=== PATIENT | female | born 1990 | race Caucasian/White ===

== ENCOUNTER 2016-09-15 12:56 | Emergency (ER) | payer BC ==
[2016-09-15 13:27] LABS: Hematocrit 39.9 % (37.0-47.0); Hemoglobin 13.3 gm/dL (12.5-16.0); Mean Cell Volume 84.9 fl (78-100); Mean Corpuscular Hemoglobin 28.3 pg (27-31); Mean Corpuscular Hgb Conc 33.3 g/dl (32-36); Mean Platelet Volume 10.8 fl (6.0-9.5); Neutrophil # 3.3 K/mm3 (1.3-6.0); Neutrophil % 49.8 % (42-75.0); Platelet Count 236 K/mm3 (150-450); Red Cell Distribution Width 13.5 % (11.5-14.0); White Blood Count 6.6 K/mm3 (4.0-10.5)
[2016-09-15 13:34] LABS: Urine Bilirubin Negative (NEGATIVE); Urine Blood Negative /ul (NEGATIVE); Urine Ketone Negative (NEGATIVE); Urine Nitrite Negative (NEGATIVE); Urine Protein Negative (NEGATIVE); Urine Urobilinogen Normal (NORMAL); Urine pH 7.5 pH (5.0-7.0)
[2016-09-15 13:42] LABS: Albumin * 3.8 gm/dl (3.4-5.0); Anion Gap 11.8 mmol/L (6.8-13.8); BUN/Creatinine Ratio 22.4 (9.0-21.6); Bilirubin, Total 0.6 mg/dL (0.0-1.1); Ca. Corrected For Albumin 8.4 mg/dL (8.4-10.2); Calcium * 8.6 mg/dL (7.9-10.9); Carbon Dioxide 28.2 mmol/L (24-32.6); Total Protein 7.3 gm/dL (6.2-8.2)
[2016-09-15 13:44] LABS: Urine Appearance Slightly Cloudy; Urine Color Yellow
[2016-09-15 13:45] LABS: Urine Bacteria 1+; Urine RBC 0-5 /hpf (0-5)
[2016-09-15] MEDS ORDERED: KETOROLAC TROMETHAMINE 30 MG/ML VIAL IV ONE (14:25)
--- NOTE | 2016-09-15 14:26 | ERNOTE ---
Abdominal HPI - General Chief Complaint: Abdominal Pain Time Seen by Provider: 09/15/16 14:17 Source: patient, family Exam Limitations: no limitations - Immun/Allergies/Home Medications Allergies/Adverse Reactions: Allergies penicillamine Allergy (Verified 09/15/16 13:10) Home Medications: HOME MEDICATIONS NK [No Home Medication] 09/15/16 [Last Taken Unknown] - History of Present Illness Narrative: Patient started to have right upper quadrant pain shortly after getting up yesterday morning. the pain has been there since waxing and waning, nausea, no vomiting, she never had similar pain, still has her gallbladder Date (Duration): 09/14/16 Time (Timing): 08:00 Quality: moderate Activities at Onset: none Modifying Factors - (Worsens): Absent: breathing, coughing Associated Symptoms: Absent: chest pain, diaphoresis, diarrhea-mucous, fever/ chills, shortness of breath Prior Abdominal Problems: Present: none Prior Treatment: Absent: recently seen, currently on antibiotics Review of Systems - Review of Systems Constitutional: Absent: recent illness, fever ENT: Absent: sore throat Respiratory: Absent: shortness of breath Cardiology: Absent: chest pain Gastrointestinal/Abdominal: Present: See HPI, nausea, abdominal pain. Absent: vomiting, diarrhea Genitourinary: Present: no symptoms reported Skin: Absent: rash Neurological: Absent: headache - Patient's Past Medical History Patient History - Medical: No pertinent hx Patient History - Cardiac/Respiratory: No pertinent hx Patient History - Cancer: No Hx of Cancer Patient History - Surgical Procedures: Appendectomy, T & A, Other - vaginal delivery x3 Patient History - Other: None - Social History Living Situations: home Psych History: No pertinent hx - Immunizations Immunizations Up to Date: Yes Physical Exam - Physical Exam General Appearance: Present: wd/wn, alert, no apparent distress Ears, Nose, Throat: Present: normal pharynx Respiratory: Present: no respiratory distress, normal breath sounds, no accessory muscle use, lungs clear Cardiovascular/Chest: Present: regular rate, rhythm, no murmur Gastrointestinal/Abdominal: Present: normal bowel sounds, nondistended, tenderness - right upper quadrant Extremity Exam: Present: normal inspection, no edema Neurological Exam: Present: alert, oriented, normal mood/affect Skin Exam: Present: normal color, warm/dry ED Progress - Results and Orders Patient's Lab Results:: I have reviewed the patient's lab results. - Vital Signs Patient's Vital Signs:: I have reviewed the patient's vital signs. Vital Signs: Vital Signs 09/15/16 13:05 Temperature 36.5 C Pulse Rate 93 Respiratory 12 Rate Blood Pressure 109/59 O2 Sat by Pulse 97 Oximetry - CT/Ultrasound CT/Ultrasound Narrative: ultrasound:no stones, no cholecystitis - Progress/Reassessment Chief Complaint: Abdominal Pain Progress Note-Subjective: 09/15/16 15:18 pain better, discussed diagnosis and need for follow up if symptoms don't improve Departure - Departure Clinical Impression: Abdominal pain Qualifiers: Abdominal location: right upper quadrant Qualified Code(s): R10.11 - Right upper quadrant pain Disposition: Home self-care Condition: Good Instructions: Abdominal Pain, Adult, [id number] Additional Instructions: take ibuprofen and tylenol as needed for pain if your pain does not improve over the next couple of days see a doctor back in [place] for further testing
[2016-09-15] MEDS ORDERED: KETOROLAC TROMETHAMINE 30 MG/ML VIAL ONE (14:35)
[2016-09-15 15:41] VITALS: BP 122/68
== END 2016-09-15 15:40 | disposition home or self-care (01) ==
LOC: ER 12:56
DX: R10.11 Right upper quadrant pain (principal)